=== PATIENT | male | born 1970 | race Caucasian/White ===

== ENCOUNTER 2023-08-30 14:43 | Inpatient (IN) | payer SELFPAY ==
[~2023-08-30] VITALS: Ht 175.3 cm; Wt 99.0 kg
[2023-08-30] VITALS (8 sets, daily range): BP systolic 132–195; BP diastolic 80–95; PULSE 100–116; TEMP 98.2–99
[2023-08-30 17:08] LABS: BASO # 0.1 K/mm3 (0.0-0.2); BASO % 0.4 % (0.0-2.0); GRAN # 17.6 K/mm3 (1.4-6.5); GRAN % 88.1 % (42.2-75.2); HEMATOCRIT 46.5 % (42.0-52.0); HEMOGLOBIN 16.3 g/dl (13.5-18.0); LYMPH # 0.8 K/mm3 (1.2-3.4); MEAN CELL VOLUME 86 fl (80.0-100.0); MEAN CORPUSCULAR HEMOGLOBIN 30 pg (27-31); MEAN CORPUSCULAR HGB CONC 35 g/dl (33.0-37.0); MEAN PLATELET VOLUME 10.3 fl (7.4-10.4); MONO # 1.3 K/mm3 (0.1-0.6); MONO % 6.7 % (1.7-9.3); PLATELET COUNT 274 K/mm3 (130-400); RED BLOOD COUNT 5.39 M/mm3 (4.20-5.60); REDCELL DISTRIBUTION WIDTH-CV 12.2 % (11.5-14.5)
[2023-08-30 17:23] LABS: ALBUMIN 4.2 gm/dL (3.5-5.0); BILIRUBIN,TOTAL 0.7 mg/dL (0.2-1.2); CALCIUM 9.3 mg/dL (8.4-10.2); CREATININE, serum 1.03 mg/dL (0.72-1.25); POTASSIUM 4.5 mmol/L (3.5-4.5); TOTAL PROTEIN 7.2 gm/dL (6.2-8.1)
[2023-08-30 17:37] LABS: INR 1.1 (0.8-3.0); PROTHROMBIN TIME 11.5 SECONDS (9.7-12.8)
--- NOTE | 2023-08-30 18:37 | NUR ---
PT TO ROOM 326 PER CART. TRANSFERED TO BED. BUCKS TRACTION 10LBS PLACED. TEDS AND SCD TO NON AFFECTED LEG.
--- NOTE | 2023-08-30 18:50 | NUR ---
resting in bed, traction in place to left leg, bedside shift report received from MARILEE Jordan
--- NOTE | 2023-08-30 21:00 | NUR ---
resting in bed, admission assessment completed at this time, repositioned in bed and rolled to left side to assess back and cocyx, medicated with morphine 2mg slow IV and also given ativan 0.25mg slow IV for anxiety, discussed his upcoming surgery and he talks about being scared, provided reassurance about the care in this facility and the care of the surgeons and anesthesia providers, verbalizes understanding and thanks me for this,
[2023-08-30 21:30] LABS: COLLECTION METHOD CLEAN CATCH
[2023-08-30 21:41] LABS: URINE APPEARANCE Clear (CLEAR/HAZY); URINE COLOR Yellow (YELLOW)
[2023-08-30 21:42] LABS: PH 5.5 (5.0-8.5); SQUAMOUS EPITHELIAL 0-2 /hpf (0-10); URINE BACTERIA Rare /hpf (NONE SEEN); URINE BLOOD Negative (NEGATIVE); URINE GLUCOSE 2+ (NEGATIVE); URINE KETONE 1+ (NEGATIVE); URINE NITRATE Negative (NEGATIVE); URINE PROTEIN(semi-quant) Negative (NEGATIVE); URINE RBC 0-2 /hpf (0-2); URINE UROBILINOGEN 0.2 E.U/dL (0.2-1.0)
--- NOTE | 2023-08-30 21:50 | NUR ---
vital signs now verified and SBP 180 amd HR was 116, will obtain another set now
--- NOTE | 2023-08-30 21:56 | NUR ---
BP now 174/95 and HR 102, notified GUSTAVO Negrete regarding order for apresoline was entered earlier but now is discontinued, will reorder but wants to make sure pain is controlled first also,
--- NOTE | 2023-08-30 22:54 | NUR ---
BP 186/83, medicated with apresoline 10mg slow IV, he is resting quietly in bed, no moaning or moving about in bed but states the morphine hasn't helped much, that when he coughed it heber alot, explained to him with any movement it will continue to hurt and the medicine does not take all the pain away, verbalizes understanding
[2023-08-31] VITALS (19 sets, daily range): BP systolic 113–156; BP diastolic 63–95; PULSE 61–96; TEMP 97.1–98.3
--- NOTE | 2023-08-31 00:03 | NUR ---
appears to be sleeping, eyes closed, resp quiet and easy
--- NOTE | 2023-08-31 02:00 | NUR ---
appears to be sleeping, eyes closed, resp quiet and easy
--- NOTE | 2023-08-31 03:06 | NUR ---
awake now and c/o pain, medicated with morphine 2mg slow IV
[2023-08-31 05:10] LABS: BASO % 0.3 % (0.0-2.0); EOS # 0.1 K/mm3 (0.0-0.7); EOS % 0.5 % (0.0-4.0); GRAN % 70.1 % (42.2-75.2); HEMATOCRIT 43.9 % (42.0-52.0); HEMOGLOBIN 15.6 g/dl (13.5-18.0); LYMPH # 1.7 K/mm3 (1.2-3.4); LYMPH % 17.4 % (20.0-51.0); MEAN CELL VOLUME 86 fl (80.0-100.0); MEAN CORPUSCULAR HEMOGLOBIN 31 pg (27-31); MEAN CORPUSCULAR HGB CONC 36 g/dl (33.0-37.0); MEAN PLATELET VOLUME 10.3 fl (7.4-10.4); MONO # 1.1 K/mm3 (0.1-0.6); MONO % 11.3 % (1.7-9.3); PLATELET COUNT 236 K/mm3 (130-400); RED BLOOD COUNT 5.12 M/mm3 (4.20-5.60); REDCELL DISTRIBUTION WIDTH-CV 12.2 % (11.5-14.5)
[2023-08-31 05:27] LABS: CALCIUM 9.2 mg/dL (8.4-10.2); CREATININE, serum 0.87 mg/dL (0.72-1.25); MAGNESIUM 1.8 mg/dL (1.6-2.6); POTASSIUM 3.9 mmol/L (3.5-4.5)
--- NOTE | 2023-08-31 06:49 | NUR ---
bedside shift report given to MARILEE Ramirez
--- NOTE | 2023-08-31 09:37 | NUR ---
Shift assessment completed. NPO status remains. Pain reevaluated, pt reported 6/10 hip pain after analgesics administered. Ice pack on L hip and bootie on lower extremity. Anxiety not relieved from Ativan. Pt reports having no further needs at this time.
--- NOTE | 2023-08-31 09:45 | NUR ---
electronic instrument trades worker met with patient to discuss discharge planning. Patient lives alone in [place], [place]. He wanted to add his two nieces as contacts: Lisa Santos [phone] and Alessandra Maharaj [phone]. Pt wanted to leave his two friends Irina and Sandoval as primary contacts. Pt says he was attempting to move to [place] and now that is on hold. He has no PCP and was interested in Dr. Rodgers. Pt does not use any DME and obtains medications with difficulty at [facility]. He has no insurance so this is why. Pt is independent with ADLS. He does not have a DPOA-HC and was to think about who he would designate at this time. Pt had insurance concerns. SW informed him she can have the [facility] team discuss with him. Pt inquired about SNF and has concerns regarding going home and having medical issues or falls. SW went over the SNF qualifications, how PT/OT eval him, and insurance barriers. Pt was informed on this and agreeable. Pt cannot afford SNF private pay. JOHN called Financial Advising Ton[employer] to meet with pt. Discharge Plan: TBD
[2023-08-31] MEDS ORDERED: XANAX 0.5MG0.5 MG PO (11:55)
--- NOTE | 2023-08-31 12:11 | NUR ---
PT TO SURGERY AT THIS TIME WITH [facility]IS PER BED. TICKET TO RIDE SENT.
--- NOTE | 2023-08-31 20:36 | NUR ---
report received from cathy richardson. pt resting in bed. pt c/o pain. scheduled tylenol and prn oxycodone administered per orders. pt repositioned to [facility]. call light in place. bed alarm on. all needs met at this time.
--- NOTE | 2023-08-31 22:33 | NUR ---
shift assessment complete, see documentation. pt a&o x4. pt voided without issue. bed alarm on. call light in place. all needs met at this time.
[2023-09-01] VITALS (13 sets, daily range): BP systolic 129–209; BP diastolic 65–96; PULSE 69–94; TEMP 97.4–98.8
[2023-09-01 05:31] LABS: HEMATOCRIT 43.2 % (42.0-52.0); HEMOGLOBIN 15.1 g/dl (13.5-18.0)
--- NOTE | 2023-09-01 08:48 | NUR ---
AGREE WITH STUDENT ASSESSMENTS EXCEPT PT HAS GAUZE AND TEGADERM DRESSING.
--- NOTE | 2023-09-01 10:48 | NUR ---
central office worker met with patient due to speaking with [employer] and being informed he does not qualify for Medicaid. Tonie informed SW that they completed the financial application papers and she just needs bank statement showing the transactions. JOHN spoke with pt regarding the reccomendation from PT/OT of HH vs Outpatient PT. SW informed him that due to no insurance HH would not be a covered option. Pt was agreeable to [facility] for Outpatient as they accept the financial papers to lower his out of pocket cost. Pt was informed of the [facility] and [place] locations. He preferred the [place] location. SW informed he will get the copy of financial papers [facility] and send over a referral to [facility]. SW reminded pt to email his bank transactions report to Tonie so she can complete the application. Pt inquired about equipment reccomendations. He informed SW that he needs a walker, crutches, and toilet riser. He asked if it was acceptable to outsource these for cheaper. SW discussed options of getting donations from a caodaism, friends, internet, or ordering on [employer] for lower cost options. Pt said he has been having his friends work on this. Pt asked about obtaining his x-rays and CAT scan imaging results as he has not been able to see them. SW informed him she can get a SHANI and have medical records bring it to him. He was informed it was of no cost as he is still in the hospital. Pt was agreeable and looking forward to this. SW informed it will be only the imaging findings as a report, not the CD images version. Pt was fine with this. Pt stated that getting a ride home could be a barrier, so he would like as much notice as possible regarding discharge so he can ask around. SW said she will try to give him ample notice. SW and pt discussed transportation barriers regarding attending outpatient PT too. SW faxed SHANI to Medical Records and asked if they could bring it up to pt. They were able to do so once it is recieved. Discharge Plan: Home with outpatient PT
--- NOTE | 2023-09-01 11:12 | NUR ---
Patient was up ambulating with PT, unable to obtain 1100 vital signs. Notified primary nurse Julian HUNT. End of student time.
--- NOTE | 2023-09-01 15:48 | NUR ---
sorting livestock worker spoke with pt due to a call from SARA Leon and Nurse Julian regarding pt's questions. Pt inquired about IPR and wondered if he could go there. He is very interested in it he stated. He continued to have questions regarding equipment needs. Pt spoke about needing crutches to use the bathroom at night. SW and SARA Leon both reccomended the FWW over using crutches. Pt called [facility] regarding prices of a toilet riser, FWW, and crutches. Pt continues to find a ride for when he discharges. He was still thinking over OP PT. SW said he will follow up after speaking with the PA. PA and SW spoke related to patient's questions. She advised that crutches would not be easier or reccomended due to pt not non weight-bearing. She agreed with HH and OP PT options. She advised SW that he did take Roxicodene this morning and could not drive on this medication. IPR review given to IPR Director Anusha to decide due to pt having no insurance, but being interested. SW spoke with pt and updated him on IPR still reviewing patient. She informed him there will not be an answer today. SW and pt verified that he needs to get a FWW over crutches. Pt says his friend is bringing a FWW this evening and doing some light grocery shopping. He informed SW that he has a friend that will check on him x2 weekly, but cannot drive him around. SW asked if he could not get into IPR what he would like set up. He was provided information on out of pocket costs from HH agencies that come to [facility] [place]. Pt had this information and was undecided. SW has not faxed a OP PT referral to [facility] on [place] due to pt being undecided. Pt went on to explain that if his costs continue to increase he might look at sueing the people from the private parking lot he fall at. SW advised she cannot provide any support for or against this, but could presume that will cost more if he needs to obtain an compliance attorney. Pt asked if he could continue to stay in the hospital if he cannot get into IPR. SW advised he would have to have medical necessity to be here. Pt asked about private paying to stay. SW restated that he needs medical necessity and would be taking up a bed for people needing surgeries. Pt was understanding and SW said they will talk in the morning. SW recieved a call from Medical Records saying they can speak with pt tomorrow, but one of the imagings were not complete or there were no notes so it is unable to be viewed. Discharge Plan: tbd
--- NOTE | 2023-09-01 20:25 | NUR ---
PT IN BED, IS ALERT AND ORIENTED X4. HAS INT TO LAC, REPORTS NAUSEA, MEDICATED WITH ZOFRAN IV AT THIS TIME. HS MEDS GIVEN. HAS DRSG'S X2 TO LT HIP. VOIDING PER URINAL. HAS OXYGEN AT 2L/NC. SCDS AND TRINITY PANDYAE ON. SCHEDULED ES TYLENOL GIVEN.
--- NOTE | 2023-09-01 23:00 | NUR ---
SECOND UNIT OF BLOOD STARTED. TOLERATED FIRST UNIT WITHOUT PROBLEM. IV TO LAC.
[2023-09-02 00:15] VITALS: BP_SYST 139
[2023-09-02 03:24] VITALS: BP 132/65; PULSE 71; TEMP 97.5
--- NOTE | 2023-09-02 03:25 | NUR ---
PT REPORTS NO BM SINCE TUESDAY. WAS GIVEN MOM LAST PM. SCHEDULED ES TYLENOL GIVEN NOW.
[2023-09-02 03:50] VITALS: BP_SYST 132
[2023-09-02 06:13] LABS: BASO % 0.2 % (0.0-2.0); EOS % 0.3 % (0.0-4.0); GRAN # 8.4 K/mm3 (1.4-6.5); GRAN % 67.8 % (42.2-75.2); HEMATOCRIT 43.9 % (42.0-52.0); LYMPH # 2.6 K/mm3 (1.2-3.4); LYMPH % 21.1 % (20.0-51.0); MEAN CELL VOLUME 88 fl (80.0-100.0); MEAN CORPUSCULAR HEMOGLOBIN 30 pg (27-31); MEAN CORPUSCULAR HGB CONC 34 g/dl (33.0-37.0); MONO # 1.3 K/mm3 (0.1-0.6); MONO % 10.2 % (1.7-9.3); PLATELET COUNT 263 K/mm3 (130-400); RED BLOOD COUNT 5.02 M/mm3 (4.20-5.60); REDCELL DISTRIBUTION WIDTH-CV 12.6 % (11.5-14.5)
[2023-09-02 06:27] LABS: CALCIUM 9.5 mg/dL (8.4-10.2); CREATININE, serum 0.8 mg/dL (0.72-1.25); POTASSIUM 4.2 mmol/L (3.5-4.5)
[2023-09-02 07:04] VITALS: BP 159/83; PULSE 77; TEMP 97.6
--- NOTE | 2023-09-02 08:00 | NUR ---
PATIENT IS A&O. VSS. 02 @ 2L PER NC WITH SATS IN MID 90'S. PATIENT REPORTS HE DOESN'T WEAR OXYGEN AT HOME. C/O MILD DISCOMFORT IN LLE AND REQUESTING SOMETHING FOR PAIN BEFORE THERAPY, GAVE PRN ROXICODONE, SEE ORDERS. STUDENT NURSE WORKING WITH PATIENT TODAY AND GIVING AM MEDS, SEE CHARTING. LEFT HIP DSG IS CD&I WITH GAUZE X2. TEDS & SCD'S TO BLE. PT/OT CONSULTED. HEAD TO TOE ASSESSMENT COMPLETE. DNR STATUS. ORTHO ROUNDED THIS AM AND SIGNED OFF. PATIENT LIVES ALONE AND DOSEN'T HAVE ANY INSURANCE. PATIENT IS VERY CONCERNED ABOUT DISCHARGE AND HOPING TO GO TO OUR IPR UNIT. CHAIRMAN EMERITUS ON CASE. NO OTHER NEEDS AT THIS TIME. STUDENT NURSE WORKING WITH PATIENT TODAY, SEE CHARTING.
[2023-09-02] MEDS ORDERED: CALCIUM 600600 MG PO (08:57)
[2023-09-02] MEDS ORDERED: ASPI325T6 PO (08:57)
[2023-09-02] MEDS ORDERED: DUO-KAPS1 CAP PO (08:58)
[2023-09-02] MEDS ORDERED: VITAMIN C500 MG PO (08:58)
[2023-09-02] MEDS ORDERED: MIRALAX PA17 GM/Dose PO (08:59)
[2023-09-02] MEDS ORDERED: ZOFRAN 4MG T4 MG/TAB PO (08:59)
[2023-09-02] MEDS ORDERED: NORCO 325 MG-51 TAB PO (08:59)
[2023-09-02 09:17] VITALS: BP_SYST 159
--- NOTE | 2023-09-02 10:13 | NUR ---
composite layup worker was informed by IPR director and was informed she spoke with pt and was accepted. She said then can transition him later today. composite layup worker spoke with patient and informed him of this. Pt was very happy and began to cry. SW informed him that they will transition him later today. SW said they will have all the DME needed and his friend can hold onto his FWW until he leaves. SW briefly went over the team meetings on Tuesday and how there is a family meeting. Pt recieved a call from his friend regarding transportation. JOHN informed he will have ample notice. Discharge Plan: IPR Today
[2023-09-02 10:55] VITALS: BP 141/65; PULSE 81; TEMP 98
--- NOTE | 2023-09-02 11:30 | NUR ---
PATIENT ACCEPTED TO [facility]. PATIENT WAS VERY GRATEFUL AND TEARFUL TO GET TO GO TO [facility] WITH NO INSURANCE, SEE DISCHARGE ORDERS. TELE DC'D. IV SITE DC'D AND COVERED. RN TO CONTINUE CARE WHEN PATIENT TRANSFER TO IPR. PATIENT MOVING TO [facility] ROOM 339. PERSONAL BELONGINGS SENT. PATIENT DISCHARGED FROM SURGICAL.
[2023-09-02] MEDS ORDERED: GOOD NEIGH1200 MG/15 PO (13:13)
== END 2023-09-02 11:30 | DRG 482 ==
LOC: COL.ER 14:43 → SURG 17:40
PROVIDERS: Orthopaedic Surgery; Physician Assistant; ADMIT Internal Medicine
PROC: 0QS706Z Reposition Left Upper Femur with Intramedullary Internal Fixation Device, Open Approach (ICD-10-PCS; principal; 2023-08-30)
DX: S72.002A Fracture of unspecified part of neck of left femur, initial encounter for closed fracture (principal); D72.829 Elevated white blood cell count, unspecified; I10 Essential (primary) hypertension; E11.9 Type 2 diabetes mellitus without complications; F41.9 Anxiety disorder, unspecified; F32.A Depression, unspecified; Z66 Do not resuscitate
CPT/HCPCS: A9284; C1713; C1769; J0360; J0690; J1100; J1170; J1815; J2060; J2250; J2270; J2405; J2704; J3010; J7030